=== PATIENT | female | born 1960 | race Caucasian/White ===

== ENCOUNTER 2018-11-14 13:12 | Emergency (ER) | payer BC ==
[2018-11-14] MEDS ORDERED: Adacel (T-DAP) 0.5 ML SYRINGE ONE (13:39)
== END 2018-11-14 13:50 | disposition home or self-care (01) ==
LOC: BURERS 13:12
DX: S61.212A Laceration without foreign body of right middle finger without damage to nail, initial encounter (principal); I10 Essential (primary) hypertension; E78.00 Pure hypercholesterolemia, unspecified; W26.8XXA Contact with other sharp object(s), not elsewhere classified, initial encounter
CPT/HCPCS: 12001; 90471; 90715